=== PATIENT | female | born 1930 | race Caucasian/White ===

== ENCOUNTER 2018-01-12 10:26 | Emergency (ER) | payer MEDICARE, OTHER ==
--- NOTE | 2018-01-12 11:48 | EDM.PDOC ---
ED HPI GENERAL MEDICAL PROBLEM - General Chief Complaint: Upper Extremity Injury/Pain Stated Complaint: FALL Time Seen by Provider: 01/12/18 10:42 Source of Information: Reports: Patient, Family, RN, RN Notes Reviewed History Limitations: Reports: No Limitations - History of Present Illness INITIAL COMMENTS - FREE TEXT/NARRATIVE: Patient presents the emergency room at [facility] complaining of left shoulder pain. The patient states she was out working in her yard this morning when she fell forward landing on her left shoulder. The patient denies any head injury or trauma. The patient denies any previous injury or trauma to the left shoulder. The patient denies any numbness tingling or paresthesia to the left upper extremity. The patient complains of pain around the left clavicle. Otherwise no other concerns. Onset: Today, Sudden Onset Date: 01/12/18 Left Clavicle Pain Score (Numeric/FACES): 10 - Related Data Allergies Allergy/AdvReac Type Severity Reaction Status Date / Time No Known Allergies Allergy Verified 01/12/18 11:08 Home Meds: Home Meds Levothyroxine Sodium [Synthroid] 100 mcg PO DAILY 01/12/18 [History] Past Medical History Endocrine/Metabolic History: Reports: Hypothyroidism Social & Family History - Tobacco Use Smoking Status *Q: Never Smoker Review of Systems - Review of Systems Review Of Systems: See Below Constitutional: Denies: Chills, Fever, Weakness Respiratory: Denies: Shortness of Breath, Cough Cardiovascular: Denies: Chest Pain, Palpitations Musculoskeletal: Reports: Shoulder Pain (left) Skin: Reports: No Symptoms Neurological: Denies: Dizziness, Headache, Numbness, Paresthesia, Tingling ED EXAM, GENERAL - Physical Exam Exam: See Below Exam Limited By: No Limitations General Appearance: Alert, No Apparent Distress Head: Atraumatic, Normocephalic Neck: Normal Inspection, Supple, Non-Tender Respiratory/Chest: No Respiratory Distress, Lungs Clear, Normal Breath Sounds Cardiovascular: Normal Peripheral Pulses, Regular Rate, Rhythm Peripheral Pulses: 2+: Radial (L), Radial (R) Extremities: Limited Range of Motion (left shoulder due to pain), Other (tender to palpation over the distal left clavicle) Neurological: Alert, Oriented Skin Exam: Warm, Dry, Intact, Normal Color Course - Vital Signs Last Recorded V/S: Last Vital Signs Temp 36.7 C 01/12/18 10:30 Pulse 72 01/12/18 10:30 Resp 18 01/12/18 10:30 BP 119/67 01/12/18 10:30 Pulse Ox 96 01/12/18 10:30 - Orders/Labs/Meds Orders: Active Orders 24 hr Category Date Time Status Shoulder Comp Lt [CR] Stat Exams 01/12/18 10:48 Taken - Radiology Interpretation Free Text/Narrative:: Shoulder, Left 2V: Acute fracture of the distal left clavicle See scanned report in EMR Departure - Departure Time of Disposition: 12:55 Disposition: Home, Self-Care 01 Condition: Good Clinical Impression: Fracture, clavicle closed, shaft Qualifiers: Encounter type: initial encounter Fracture alignment: displaced Laterality: left Qualified Code(s): S42.022A - Displaced fracture of shaft of left clavicle , initial encounter for closed fracture - Discharge Information Instructions: Clavicle Fracture (Shaft) With [facility]hab[facility], Clavicle Fracture Referrals: Dany Benites MD [Primary Care Provider] - Forms: ED Department Discharge Additional Instructions: 1. Stay well hydrated and rest 2. May use Tylenol and/or Advil as needed for pain 3. Apply ice to affected area couple times a day for the next 2 days 4. Wear sling at all times 5. You are schedule to see Orthopedics at [facility] on January 16, 2018 at 08:10am at the [facility] on . 6. See your Primary as symptoms warrant ED Communication - ED Communication Date/Time Date: 01/12/18 Time Called: 11:44 - Discussed Case With (1) Discussed Case With (1): Outpatient Provider (Dr. Sullivan, Orthopedics.) - Problem List Review Problem List Initiated/Reviewed/Updated: Yes - My Orders Last 24 Hours: My Active Orders 01/12/18 10:48 Shoulder Comp Lt [CR] Stat - Assessment/Plan Last 24 Hours: My Active Orders 01/12/18 10:48 Shoulder Comp Lt [CR] Stat Assessment:: Left clavicle fracture Left shoulder injury Fall at home Plan: Attempted to contact Dr. Sullivan, Orthopedics. Unavailable as he is in surgery performing a case. Will discharge patient home with a follow up at Orthopedic this Friday. See D/C instructions
== END 2018-01-12 16:00 | disposition home or self-care (01) ==
LOC: VM.ED 10:26
DX: S42.032A Displaced fracture of lateral end of left clavicle, initial encounter for closed fracture (principal); E03.9 Hypothyroidism, unspecified; Z79.899 Other long term (current) drug therapy; W19.XXXA Unspecified fall, initial encounter; Y92.009 Unspecified place in unspecified non-institutional (private) residence as the place of occurrence of the external cause
CPT/HCPCS: 73030-LT; 99283; 99283-GF